=== PATIENT | male | born 1965 | race Caucasian/White ===

== ENCOUNTER 2016-08-07 11:50 | Emergency (ER) | payer OTHER ==
[~2016-08-07] VITALS: Ht 182.9 cm; Wt 102.4 kg
[2016-08-07 13:28] LABS: HEMATOCRIT 44.8 % (38.0-50.0); MCH 30.5 PG (29.0-34.0); MCHC 33.7 G/DL (30.0-36.0); MCV 90.5 FL (86-99); MEAN PLAT.VOLUME 9.3 uM^3 (9.0-12.4); PLATELET COUNT 295 K/uL (156-360); RBC DIS.WIDTH-CV 11.7 % (11.8-14.6); RBC DIS.WIDTH-SD 38.5 % (39-53); RED BLOOD COUNT 4.95 M/uL (4.00-5.50); WHITE BLOOD COUNT 6.2 K/uL (4.1-10.2)
[2016-08-07 13:30] LABS: CHLORIDE 109 mEq/L (99-109); POTASSIUM 4.6 mEq/L (3.7-5.4); SODIUM 139 mEq/L (136-147)
[2016-08-07 13:32] LABS: GLUCOSE 88 mg/dL (70-99)
[2016-08-07 13:33] LABS: ANION GAP 5 MEQ/L (2-14)
[2016-08-07 13:36] LABS: GFR ESTIMATE (CALCULATED) > 59 mL/min/; UREA NITROGEN (BUN) 13 mg/dL (9-23)
[2016-08-07 13:40] LABS: TROP-I INTERPRETATION NEGATIVE; TROPONIN-I < 0.01 ng/mL (0.0-0.30)
[2016-08-07] MEDS ORDERED: MELOXICAM15 MG PO (14:15)
[2016-08-07 14:59] VITALS: BP 130/81
== END 2016-08-07 15:05 | disposition home or self-care (01) ==
LOC: EME 11:50
DX: R07.89 Other chest pain (principal)
CPT/HCPCS: 71020; 80048; 84484; 85027; 93005; 99281; 99283